=== PATIENT | female | born 1950 | race Caucasian/White ===

== ENCOUNTER 2016-12-26 11:36 | Emergency (ER) | payer MEDICARE ==
[~2016-12-26] VITALS: Ht 165.1 cm; Wt 68.0 kg
[~2016-12-26 11:36] MED LIST: AUGMENTIN 875-1 EACH PO; FLEXERIL10 M1 PO; KEFLEX 500MG.500 MG PO; LISINOPRIL40 MG PO; MACRODANTIN100 MG PO; METFORMIN500 MG PO; NAPROSYN500 M1 PO; PREDNISONE 20MG20 MG PO; TESSALON PERLE100 MG PO; ZOFRAN ODT4 MG PO
[2016-12-26] MEDS ORDERED: PREDNISONE 20MG20 MG PO (12:17)
[2016-12-26 12:24] VITALS: BP 160/90
--- NOTE | 2016-12-26 12:40 | Urgent Treatment Center Report ---
History of Present Issue Date/Time Seen by Provider 12/26/16 1215 Visit Reason Pt arrived:Walked Presenting Problem:PT C/O HEAD CONGESTION, FEVER, COUGH, BEEN EXPOSED TO THE FLU Location if Accident: Onset of symptoms date/time:/ or onset unknown for:MEDICAL HX UNKNOWN Have you (or family members/close friends) recently traveled outside the [place]? N If Yes, where/when: Have you had exposure to infectious disease within the past month? TB? Other? Specify: Source patient, RN notes reviewed, family Exam Limitations no limitations Comment Patient has had fever, body aches, chills and cough since yesterday. She has been exposed to the flu. She has not had a flu shot. Denies ear pain, sore throat. Denies N/V/D. ALLERGIES Coded Allergies: ciprofloxacin (Mild, 09/15/15) Home Medications Reported Medications Lisinopril (Lisinopril 40MG) 40 MG PO DAILY History Medical History General CAD? No Angina: No NM: No Hypertension? Yes Hyperlipidemia? No CHF? No DVT? No PE? No COPD? No Asthma? No Anemia? No GERD? No Gastric ulcers? No GI Bleed? No Hernia? No Thyroid Problems? No Hypothyroidism? No CVA? No Seizures? No Diabetes? Yes Insulin Dependent: No Insulin Pump: No Home FSBS? Yes UTI? No Stones? No GB Disease: Yes Nephritic Syndrome? No Asplenia? No Hepatitis? No Sickle Cell Disease? No Arthritis? No Migraines? No Cataracts? No Glaucoma? No MRSA? No HIV? No TB? No Anxiety? No Depression? No Cancer? No Immunization HX DT/Tetanus Unknown Surgical Hx Previous Surgery?N Social History Smoking Hx Smoker: Former Smoker Tobacco: No Alcohol Alcohol: No Review of Systems All Other Systems Reviewed and Negative Constitutional chills, fever, malaise Respiratory cough Physical Exam Vital Signs Vital Signs Date Time Temp Pulse Resp B/P Pulse O2 O2 Flow FiO2 Ox Delivery Rate 12/26 1224 99.0 110 16 160/90 98 12/26 1154 99.0 110 16 160/90 98 General Appearance normal appearance, no apparent distress Ear, Nose, Throat hearing grossly normal, normal ENT inspection Respiratory Status No: respiratory distress, trachea midline, chest symmetrical. Lung Sounds bilateral: normal breath sounds, lungs clear. Cardiovascular normal exam, regular rate/rhythm, no peripheral edema, no gallop, no JVD, no murmur, no rub Gastrointestinal normal bowel sounds, normal exam, non tender Neurologic alert, normal exam, oriented x 3 Medical Decision Making LABS/Meds/Orders Pt receiving controlled substance in ED? No Results/Orders Laboratory Tests 12/26/16 1156: Influenza Type A Ag DETECTED H, Influenza Type B Ag NOT DETECTED Orders Procedure Date/time Status [facility] FLU A,B 12/26 1156 Complete Departure Departure Time of Disposition 1230 Disposition DC Home or Self Care(routine) Clinical Impression Primary Impression: Influenza A Condition STABLE Referrals Lionel SOTO,Scott Irby (Family) Patient Instructions DI for Influenza -- Adult Additional Instructions Pt cannot afford Tamiflu; advised not to visit mother at senior living until well Discharge Counseling Counseled pt/family regarding diagnosis, test results, medications/RX, home care, follow up needs Comment Rest, fluids, Tylenol/Motrin PRN fever Prescriptions Current Visit Scripts Prednisone (Prednisone 20MG) 20 MG PO BID #10 TAB at 1250
--- NOTE | 2016-12-26 12:40 | Urgent Treatment Center Report ---
History of Present Issue Date/Time Seen by Provider 12/26/16 1215 Visit Reason Pt arrived:Walked Presenting Problem:PT C/O HEAD CONGESTION, FEVER, COUGH, BEEN EXPOSED TO THE FLU Location if Accident: Onset of symptoms date/time:/ or onset unknown for:MEDICAL HX UNKNOWN Have you (or family members/close friends) recently traveled outside the [place]? N If Yes, where/when: Have you had exposure to infectious disease within the past month? TB? Other? Specify: Source patient, RN notes reviewed, family Exam Limitations no limitations Comment Patient has had fever, body aches, chills and cough since yesterday. She has been exposed to the flu. She has not had a flu shot. Denies ear pain, sore throat. Denies N/V/D. ALLERGIES Coded Allergies: ciprofloxacin (Mild, 09/15/15) Home Medications Reported Medications Lisinopril (Lisinopril 40MG) 40 MG PO DAILY History Medical History General CAD? No Angina: No RI: No Hypertension? Yes Hyperlipidemia? No CHF? No DVT? No PE? No COPD? No Asthma? No Anemia? No GERD? No Gastric ulcers? No GI Bleed? No Hernia? No Thyroid Problems? No Hypothyroidism? No CVA? No Seizures? No Diabetes? Yes Insulin Dependent: No Insulin Pump: No Home FSBS? Yes UTI? No Stones? No GB Disease: Yes Nephritic Syndrome? No Asplenia? No Hepatitis? No Sickle Cell Disease? No Arthritis? No Migraines? No Cataracts? No Glaucoma? No MRSA? No HIV? No TB? No Anxiety? No Depression? No Cancer? No Immunization HX DT/Tetanus Unknown Surgical Hx Previous Surgery?N Social History Smoking Hx Smoker: Former Smoker Tobacco: No Alcohol Alcohol: No Review of Systems All Other Systems Reviewed and Negative Constitutional chills, fever, malaise Respiratory cough Physical Exam Vital Signs Vital Signs Date Time Temp Pulse Resp B/P Pulse O2 O2 Flow FiO2 Ox Delivery Rate 12/26 1224 99.0 110 16 160/90 98 12/26 1154 99.0 110 16 160/90 98 General Appearance normal appearance, no apparent distress Ear, Nose, Throat hearing grossly normal, normal ENT inspection Respiratory Status No: respiratory distress, trachea midline, chest symmetrical. Lung Sounds bilateral: normal breath sounds, lungs clear. Cardiovascular normal exam, regular rate/rhythm, no peripheral edema, no gallop, no JVD, no murmur, no rub Gastrointestinal normal bowel sounds, normal exam, non tender Neurologic alert, normal exam, oriented x 3 Medical Decision Making LABS/Meds/Orders Pt receiving controlled substance in ED? No Results/Orders Laboratory Tests 12/26/16 1156: Influenza Type A Ag DETECTED H, Influenza Type B Ag NOT DETECTED Orders Procedure Date/time Status [facility] FLU A,B 12/26 1156 Complete Departure Departure Time of Disposition 1230 Disposition DC Home or Self Care(routine) Clinical Impression Primary Impression: Influenza A Condition STABLE Referrals Lionel SOTO,Scott Irby (Family) Patient Instructions DI for Influenza -- Adult Additional Instructions Pt cannot afford Tamiflu; advised not to visit mother at skilled nursing until well Discharge Counseling Counseled pt/family regarding diagnosis, test results, medications/RX, home care, follow up needs Comment Rest, fluids, Tylenol/Motrin PRN fever Prescriptions Current Visit Scripts Prednisone (Prednisone 20MG) 20 MG PO BID #10 TAB at 1250
[2017-01-03] MEDS ORDERED: LISINOPRIL40 MG PO (20:52)
[2017-01-03] MEDS ORDERED: JANUVIA50 MG PO (20:52)
== END 2016-12-26 12:25 | disposition home or self-care (01) ==
LOC: UTC 11:36
DX: J10.1 Influenza due to other identified influenza virus with other respiratory manifestations (principal); I10 Essential (primary) hypertension; E11.9 Type 2 diabetes mellitus without complications; Z87.891 Personal history of nicotine dependence